=== PATIENT | female | born 1990 | race Hispanic/Latino ===

== ENCOUNTER 2022-10-02 09:11 | Emergency (ER) | payer SELFPAY ==
[~2022-10-02] VITALS: Ht 157.5 cm; Wt 69.0 kg
[~2022-10-02 09:11] MED LIST: NAPROXEN500 MG PO; PRENATABS RX T1 EACH PO
--- OUTSIDE RECORDS SUMMARY | 2022-10-02 09:20 | XMS ---
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 Jada VISIT COUNT (12 MO.) [address] TOTAL 2 NOTE: Visits indicate total known visits. ED/UCC VISIT TRACKING (12 MO.) 10/02/2022 09:14 [facility] [place] TYPE: Emergency COMPLAINT: - BODY ITCHING, ESPECIALLY PALMS 10/02/2022 02:28 [facility] [place] TYPE: Emergency DIAGNOSES: - Pruritus, unspecified - ITCHY INPATIENT VISIT TRACKING (12 MO.) No inpatient visits to display in this time frame [email or web address]
[2022-10-02] MEDS ORDERED: PREDNISONE20 MG PO (12:12)
[2022-10-02 12:30] VITALS: BP 115/68
== END 2022-10-02 12:33 | disposition home or self-care (01) ==
LOC: ED 09:11
DX: L50.9 Urticaria, unspecified (principal)
CPT/HCPCS: 99282